=== PATIENT | male | born 2005 | race African-American/Black ===

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

== ENCOUNTER 2023-07-16 15:18 | Emergency (ER) | payer OTHER ==
[~2023-07-16] VITALS: Wt 59.0 kg
[~2023-07-16 15:18] MED LIST changes: +CEPHALEXIN500 M1 PO
== END 2023-07-16 19:18 | disposition home or self-care (01) ==
LOC: ED 15:18
DX: F45.8 Other somatoform disorders (principal); J45.909 Unspecified asthma, uncomplicated; F90.9 Attention-deficit hyperactivity disorder, unspecified type; F31.9 Bipolar disorder, unspecified